=== PATIENT | male | born 1985 | race Hispanic/Latino ===

== ENCOUNTER 2017-09-06 22:33 | Emergency (ER) | payer OTHER ==
[2017-09-06 23:04] LABS: BASOPHILS % (AUTO) 0.7 % (0.0-5.0); EOSINOPHILS % (AUTO) 0.8 % (0.0-8.0); HEMATOCRIT 40.6 % (42-54); LYMPHOCYTES % (AUTO) 22.5 % (21.0-51.0); MEAN CORPUSCULAR HEMOGLOBIN 31.6 pg (27.0-33.0); MEAN CORPUSCULAR HGB CONC 35.4 g/dL (32.0-36.0); MEAN CORPUSCULAR VOLUME 89.4 fL (79-99); MONOCYTES % (AUTO) 3.8 % (3.0-13.0); NEUTROPHILS % (AUTO) 72.2 % (40.0-77.0); PLATELET COUNT (AUTO) 213 K/uL (130-400); RED BLOOD CELL COUNT(AUTO) 4.54 MIL/uL (4.50-6.20); RED CELL DISTRIBUTION WIDTH 12.6 % (11.0-15.5); WHITE BLOOD COUNT (AUTO) 7.3 K/uL (4.8-10.8)
[2017-09-06 23:13] LABS: APPEARANCE,URINE Cloudy (CLEAR); BILIRUBIN,URINE Negative (NEGATIVE); COLOR,URINE Yellow (YELLOW); GLUCOSE, URINE (UA) TRACE mg/dL (NEGATIVE); KETONES,URINE Trace mg/dL (NEGATIVE); LEUKOCYTE ESTERASE ,URINE Negative (NEGATIVE); NITRATE,URINE Negative (NEGATIVE); OCCULT BLOOD,URINE Small (NEGATIVE); PROTEIN,URINE POS 2+ (NEGATIVE); UROBILINOGEN,URINE 0.2 mg/dL (0.2-1.0)
[2017-09-06 23:20] LABS: CARBON DIOXIDE 21 mmol/L (21-32); CHLORIDE 104 mmol/L (101-111); CREATININE 1.4 mg/dL (0.5-1.5); GLOMERULAR FILTR. RATE CALC 62 mL/min (>60); GLUCOSE,RANDOM 149 mg/dL (70-105); POTASSIUM 3.6 mmol/L (3.5-5.1); SODIUM SERUM 142 mmol/L (136-145); UREA NITROGEN, BLOOD 15 mg/dL (7-18)
[2017-09-06 23:21] LABS: AMPHET/METH SCREEN,URINE NEGATIVE (NEGATIVE); BARBITURATE SCREEN, URINE NEGATIVE (NEGATIVE); BENZODIAZEPINES SCREEN,URINE POSITIVE (NEGATIVE); CANNABINOID SCREEN,URINE NEGATIVE (NEGATIVE); COCAINE SCREEN,URINE POSITIVE (NEGATIVE); OPIATE SCREEN,URINE NEGATIVE (NEGATIVE); PHENCYCLIDINE SCREEN,URINE NEGATIVE (NEGATIVE)
[2017-09-06 23:24] LABS: ALANINE AMINOTRANSFERASE 22 U/L (12-78); ALBUMIN 3.9 g/dL (3.5-5.0); ASPARTATE AMINOTRANSFERASE 16 U/L (10-37); BILIRUBIN,TOTAL 0.5 mg/dL (0.2-1.0)
[2017-09-06 23:25] LABS: PHENYTOIN (DILANTIN) < 0.5 mcg/mL (10.0-20.0)
[2017-09-06 23:27] LABS: BACTERIA,URINE Rare /HPF (None Seen); RBC,URINE 0-1 /HPF (0-1); SPERM,URINE Moderate /HPF (None Seen)
[2017-09-06] MEDS ORDERED: FOSPHENYTOIN SODIUM 500 MG/10ML VIAL IJ ONE (23:28)
== END 2017-09-07 01:19 | disposition home or self-care (01) ==
LOC: EDH 22:33
DX: S09.8XXA Other specified injuries of head, initial encounter (principal); G40.909 Epilepsy, unspecified, not intractable, without status epilepticus; Z71.51 Drug abuse counseling and surveillance of drug abuser; Z87.891 Personal history of nicotine dependence; X58.XXXA Exposure to other specified factors, initial encounter; Y93.89 Activity, other specified; Y92.89 Other specified places as the place of occurrence of the external cause; Y99.8 Other external cause status
CPT/HCPCS: 36415; 70450; 72125; 80053; 80185; 80305; 81001; 83735; 85025; 96365; 99285; Q2009

== ENCOUNTER 2018-05-12 21:36 | Emergency (ER) | payer SELFPAY ==
[2018-05-12] MEDS ORDERED: ACETAMINOPHEN-CODEINE 300/30MG TAB ONE (23:30)
[2018-05-12] MEDS ORDERED: AMOXICILLIN/POTASSIUM CLAV 875-125 TABLET PO ONE (23:30)
[2018-05-12] MEDS ORDERED: TETANUS/DIPHTHERIA TOXOID [ADULT] 0.5 ML VIAL IM ONE (23:31)
[2018-05-12] MEDS ORDERED: LIDOCAINE HCL 1% 20 ML VIAL ONE (23:40)
== END 2018-05-13 01:10 | disposition home or self-care (01) ==
LOC: EDH 21:36
DX: S71.152A Open bite, left thigh, initial encounter (principal); W54.0XXA Bitten by dog, initial encounter; Y93.89 Activity, other specified; Y92.89 Other specified places as the place of occurrence of the external cause; Y99.8 Other external cause status
CPT/HCPCS: 12004; 12034; 73562; 90471; 90714

== ENCOUNTER 2019-02-01 13:05 | Emergency (ER) | payer SELFPAY ==
[2019-02-01 13:29] LABS: BASOPHILS % (AUTO) 0.6 % (0.0-5.0); EOSINOPHILS % (AUTO) 0.2 % (0.0-8.0); HEMATOCRIT 42.7 % (42-54); MEAN CORPUSCULAR HEMOGLOBIN 32.2 pg (27.0-33.0); MEAN CORPUSCULAR HGB CONC 35.5 g/dL (32.0-36.0); MEAN CORPUSCULAR VOLUME 90.8 fL (79-99); MONOCYTES % (AUTO) 6.8 % (3.0-13.0); NEUTROPHILS % (AUTO) 78.4 % (40.0-77.0); PLATELET COUNT (AUTO) 183 K/uL (130-400); RED BLOOD CELL COUNT(AUTO) 4.71 MIL/uL (4.50-6.20); RED CELL DISTRIBUTION WIDTH 12.5 % (11.0-15.5); WHITE BLOOD COUNT (AUTO) 7.7 K/uL (4.8-10.8)
[2019-02-01 13:38] LABS: CARBON DIOXIDE 28 mmol/L (21-32); CHLORIDE 102 mmol/L (101-111); CREATININE 1.1 mg/dL (0.5-1.5); GLOMERULAR FILTR. RATE CALC 81 mL/min (>60); GLUCOSE,RANDOM 108 mg/dL (70-105); POTASSIUM 3.7 mmol/L (3.5-5.1); SODIUM SERUM 138 mmol/L (136-145); UREA NITROGEN, BLOOD 13 mg/dL (7-18)
[2019-02-01 13:40] LABS: ALANINE AMINOTRANSFERASE 20 U/L (12-78); ALBUMIN 3.9 g/dL (3.5-5.0); ASPARTATE AMINOTRANSFERASE 18 U/L (10-37); BILIRUBIN,TOTAL 0.7 mg/dL (0.2-1.0); TOTAL PROTEIN, SERUM 6.8 g/dL (6.0-8.3)
[2019-02-01] MEDS ORDERED: ACETAMINOPHEN EXTRA STRENGTH 500 MG TABLET ONE (13:44)
[2019-02-01 13:48] LABS: PHENYTOIN (DILANTIN) < 0.5 mcg/mL (10.0-20.0)
[2019-02-01] MEDS ORDERED: FOSPHENYTOIN SODIUM 500 MG/10ML VIAL IJ ONE (15:35)
[2019-02-01] MEDS ORDERED: SODIUM CHLORIDE 0.9% 100 ML IV ONE (15:36)
[2019-02-01] MEDS ORDERED: PHENYTOIN SODIUM 100 MG ERCAP PO ONE (15:52)
[2019-02-01] MEDS ORDERED: LIDOCAINE 1%-EPI 1:100,000 20 ML VIAL IJ ONE (16:00)
[2019-02-01] MEDS ORDERED: NEOMY SULF/BACITRA/POLYMYXIN B 1 EACH PACKET TP ONE (16:33)
[2019-02-01 16:40] LABS: AMPHET/METH SCREEN,URINE NEGATIVE (NEGATIVE); BARBITURATE SCREEN, URINE NEGATIVE (NEGATIVE); BENZODIAZEPINES SCREEN,URINE POSITIVE (NEGATIVE); CANNABINOID SCREEN,URINE NEGATIVE (NEGATIVE); COCAINE SCREEN,URINE POSITIVE (NEGATIVE); OPIATE SCREEN,URINE NEGATIVE (NEGATIVE); PHENCYCLIDINE SCREEN,URINE NEGATIVE (NEGATIVE)
[2019-02-01] MEDS ORDERED: TETANUS/DIPHTHERIA TOXOID [ADULT] 0.5 ML VIAL IM ONE (16:55)
== END 2019-02-01 17:13 | disposition home or self-care (01) ==
LOC: EDH 13:05
DX: S01.01XA Laceration without foreign body of scalp, initial encounter (principal); G40.909 Epilepsy, unspecified, not intractable, without status epilepticus; F14.10 Cocaine abuse, uncomplicated; Z72.0 Tobacco use; X58.XXXA Exposure to other specified factors, initial encounter; Y93.89 Activity, other specified; Y92.89 Other specified places as the place of occurrence of the external cause; Y99.8 Other external cause status
CPT/HCPCS: 12002; 36415; 70450; 80053; 80185; 80305; 85025; 90471; 90714; 96365; 99285; J3490; Q2009

== ENCOUNTER 2024-02-04 11:49 | Emergency (ER) | payer BC ==
[~2024-02-04] VITALS: Ht 170.2 cm; Wt 68.0 kg
[2024-02-04 12:37] LABS: BASOPHILS # (AUTO) 0.02 K/uL (0.00-0.20); BASOPHILS % (AUTO) 0.3 % (0.0-5.0); EOSINOPHILS # (AUTO) 0.01 K/uL (0.00-0.70); EOSINOPHILS % (AUTO) 0.1 % (0.0-8.0); HEMATOCRIT 48.4 % (42-54); IMMATURE GRANULOCYTE ABSOLUTE 0.02 K/uL (0-1); LYMPHOCYTES # (AUTO) 0.7 K/uL (1.0-4.8); LYMPHOCYTES % (AUTO) 9.2 % (21.0-51.0); MEAN CORPUSCULAR HEMOGLOBIN 32.1 pg (27.0-33.0); MEAN CORPUSCULAR HGB CONC 36.6 g/dL (32.0-36.0); MEAN CORPUSCULAR VOLUME 87.7 fL (79-99); MONOCYTES # (AUTO) 0.3 K/uL (0.1-1.0); MONOCYTES % (AUTO) 3.9 % (3.0-13.0); NEUTROPHILS # (AUTO) 6.8 K/uL (1.8-7.7); NEUTROPHILS % (AUTO) 86.2 % (40.0-77.0); PLATELET COUNT (AUTO) 225 K/uL (130-400); RED BLOOD CELL COUNT(AUTO) 5.52 MIL/uL (4.50-6.20); RED CELL DISTRIBUTION WIDTH 11.9 % (11.0-15.5); WHITE BLOOD COUNT (AUTO) 7.9 K/uL (4.8-10.8)
[2024-02-04 12:47] LABS: CARBON DIOXIDE 24 mmol/L (21-32); CHLORIDE 102 mmol/L (101-111); CREATININE 1.1 mg/dL (0.5-1.3); GLOMERULAR FILTR. RATE CALC 87 mL/min (>90); GLUCOSE,RANDOM 126 mg/dL (70-105); POTASSIUM 3.5 mmol/L (3.5-5.1); SODIUM SERUM 139 mmol/L (136-145); UREA NITROGEN, BLOOD 6 mg/dL (7-18)
[2024-02-04 12:49] LABS: PHENYTOIN (DILANTIN) 6.2 mcg/mL (10.0-20.0)
--- NOTE | 2024-02-04 12:49 | ERN ---
ED Note History of Present Illness Stated Complaint: SEIZURE Chief Complaint: Seizure Time Seen by MD: 12:30 Dictation: History of present illness: 38-year-old male with past medical history of seizure, depression, anxiety presented to ED after having a 2 minute witnessed seizure episode at work. He had last seizure episode 4 months back. As per the patient he hit his left side of the head near the eye and the corner of a desk. No history of loss of consciousness, no vomiting, no nausea. No recent history of any infection reported. He complains of headache, 5/10. At the time of presentation his vitals were stable. As per the patient he is on alprazolam 2 mg once or twice daily, mood stabilizer and he has not been taking any alprazolam for past 3 days; he suspects this could be a withdrawal seizure similar history has happened before. He denies any allergies, any alcohol intake, but vapes marijuana. Allergies: Coded Allergies: No Known Drug Allergies (Unverified Allergy, Unknown, 02/04/24) Past Medical History Past Medical History: Seizure Surgical History: None Review of System Dictation REVIEW OF SYSTEMS Positive for headache, seizure CONSTITUTIONAL: Denies fevers, chills, or night sweats. No unintentional weight loss reported. ENT: No hearing loss, otalgia, otorrhea, rhinitis, rhinorrhea, hoarseness, or sore throat. CARDIOVASCULAR: Denies any exertional angina, dyspnea on exertion, orthopnea, paroxysmal nocturnal dyspnea, palpitations claudication. PULMONARY: Denies any shortness of breath, cough, phlegm / sputum, hemoptysis, pleuritic chest pain. SLEEP: Denies morning headaches, daytime somnolence or napping. Denies difficulty falling asleep, staying asleep, waking from sleep. Denies knowledge of snoring. GASTROINTESTINAL: Denies any type of dysphagia to either liquids or solids. Denies nausea, vomiting, abdominal pain, diarrhea, constipation, blood in stools . NEUROLOGICAL: Denies headache, motor weakness, sensory deficit, vertigo / spinning sensation, gait abnormalities, or tremors. GENITOURINARY: Denies frequency, urgency, nocturia, hematuria or incontinence, low urinary stream, straining to void, urinary intermittency or hesitancy ENDOCRINOLOGY: Denies polyuria, polydipsia, polyphagia or heat / cold intolerance. HEMATOLOGY: Denies thrombophilia / previous clots, or coagulopathy / bleeding disorders. ONCOLOGIC: Denies personal history of malignancy. DERMATOLOGIC: Denies rashes or pruritus. PSYCHIATRIC: Denies any suicidal or homicidal ideation. Denies hallucinations. Initial Vital Sign VS Vital Signs Date Time Temp Pulse Resp B/P (MAP) Pulse Ox O2 Delivery O2 Flow Rate FiO2 02/04/24 11:50 97 17 127/90 97 Room Air 0 02/04/24 12:07 98.2 21 Physical Exam Dictation PHYSICAL EXAM GENERAL APPEARANCE: Well nourished . Awake and alert. Oriented to time, place and person. No acute cardiopulmonary distress. HEENT: Head normocephalic , atraumatic. Sclera anicteric . Pupils are round and reactive. Extraocular movements intact . No conjunctival injection. No nasal congestion. No throat congestion .Oral mucosa moist. NECK: Supple. No JVD. No thyromegaly. No submental, submandibular, pre- /postauricular, occipital or supraclavicular lymphadenopathy. No carotid bruits. CHEST: Normal chest expansion. No Telemetry. LUNGS: Clear to auscultation bilaterally . No rales, rhonchi or any wheezing. Equal tactile fremitus. Resonant to percussion . CARDIOVASCULAR: Regular rate and rhythm. S1 and S2 normal. No rubs, murmurs or gallops. ABDOMEN: Soft, nontender, and nondistended. There is no rebound tenderness, voluntary guarding, or rigidity. No hepatosplenomegaly. Bowel sounds normal in all four quadrants . NEUROLOGICAL: Cranial nerves II-XII grossly intact. Motor is 5/5 in bilateral upper and lower extremities . No sensory deficits. EXTREMITIES: No edema, No cyanosis , No clubbing. Good capillary refill. SKIN: 1 cm laceration on the inferolateral aspect of left. Abrasion wound 1 cm on left side of vertex,. PSYCHIATRY: Normal affect .No auditory or visual hallucinations. Normal speech. No dysarthria. Results (Laboratory/Radiology) Laboratory/Radiology Laboratory Tests Test 02/04/24 12:21 02/04/24 13:10 White Blood Count 7.9 K/uL (4.8-10.8) Red Blood Count 5.52 MIL/uL (4.50-6.20) Hemoglobin 17.7 g/dL (14.0-18.0) Hematocrit 48.4 % (42-54) Mean Corpuscular Volume 87.7 fL (79-99) Mean Corpuscular Hemoglobin 32.1 pg (27.0-33.0) Mean Corpuscular Hemoglobin Concent 36.6 g/dL (32.0-36.0) H Red Cell Distribution Width 11.9 % (11.0-15.5) Platelet Count 225 K/uL (130-400) Mean Platelet Volume 10.3 fL (7.5-10.5) Immature Granulocyte % (Auto) 0.3 % (0-1) Neutrophils (%) (Auto) 86.2 % (40.0-77.0) H Lymphocytes (%) (Auto) 9.2 % (21.0-51.0) L Monocytes (%) (Auto) 3.9 % (3.0-13.0) Eosinophils (%) (Auto) 0.1 % (0.0-8.0) Basophils (%) (Auto) 0.3 % (0.0-5.0) Neutrophils # (Auto) 6.8 K/uL (1.8-7.7) Lymphocytes # (Auto) 0.7 K/uL (1.0-4.8) L Monocytes # (Auto) 0.3 K/uL (0.1-1.0) Eosinophils # (Auto) 0.01 K/uL (0.00-0.70) Basophils # (Auto) 0.02 K/uL (0.00-0.20) Absolute Immature Granulocyte (auto 0.02 K/uL (0-1) Nucleated Red Blood Cells 0.0 % (0.0-0.19) White Cell Morphology Comment See comments Red Blood Cell Morphology See comments Sodium Level 139 mmol/L (136-145) Potassium Level 3.5 mmol/L (3.5-5.1) Chloride Level 102 mmol/L (101-111) Carbon Dioxide Level 24 mmol/L (21-32) Blood Urea Nitrogen 6 mg/dL (7-18) L Creatinine 1.1 mg/dL (0.5-1.3) Glomerular Filtration Rate Calc 87 mL/min (>90) Random Glucose 126 mg/dL (70-105) H Total Calcium 9.0 mg/dL (8.5-10.1) Phenytoin (Dilantin) Level 6.2 mcg/mL (10.0-20.0) #L Valproic Acid (Depakene) Level < 3 mcg/mL (50-100) L Urine Opiates Screen NEGATIVE (NEGATIVE) Urine Barbiturates Screen NEGATIVE (NEGATIVE) Urine Phencyclidine Screen NEGATIVE (NEGATIVE) Urine Amphetamines Screen NEGATIVE (NEGATIVE) Urine Benzodiazepines Screen NEGATIVE (NEGATIVE) Urine Cocaine Screen NEGATIVE (NEGATIVE) Urine Marijuana (THC) Screen POSITIVE (NEGATIVE) H ED Course ED Course Orders Procedure Category Date Status Time Cbc With Differential LAB 02/04/24 Complete 11:52 Phenytoin (Joe) In LAB 02/04/24 Complete House 11:52 Valproic Acid LAB 02/04/24 Complete 11:52 Ct Head/Brain W/O CT 02/04/24 Resulted Contrast 11:52 Basic Metabolic Panel LAB 02/04/24 Complete 11:52 Drug Screen Urine LAB 02/04/24 Complete 11:52 Phenytoin 100mg PHA 02/04/24 In Process (50mg/Ml) Inj 14:00 Dermabond (Dermabond) PHA 02/04/24 Complete 14:00 Current Medications Medications (Trade) Dose Ordered Sig/Zaki Route PRN Reason Start Time Stop Time Status Last Admin Dose Admin Octyl Cyanoacrylate (Dermabond) 1 each ONCE ONCE TP 02/04/24 14:00 02/04/24 14:01 DC Phenytoin Sodium 1000 mg/Sodium Chloride 180 ml @ 360 mls/hr AD ONCE IV 02/04/24 14:00 02/04/24 14:29 Vital Signs Date Time Temp Pulse Resp B/P (MAP) Pulse Ox O2 Delivery O2 Flow Rate FiO2 02/04/24 12:07 98.2 78 16 116/72 98 Room Air* 0 21 02/04/24 11:50 97 17 127/90 97 Room Air 0 Medical Decision Making MDM Differential diagnosis : seizure disorder, breakthrough seizure, withdrawal seizure . Rationale: Tests considered and ordered secondary to shared decision making include: I will re-evaluate the patient after treatment and diagnostic exams have returned to determine whether they require further testing, can be safely discharged home, or need admission for further treatment and evaluation. Given the social determinants of health affecting care, including literacy, access to medical care, prescription drug management, and [id number] drugs, I will ensure that treatment plans are tailored accordingly. There are no social concerns with this patient. Risk of complication and/or morbidity or mortality of patient management: None Need for hospitalization: Patient does not meet criteria for hospitalization. Need for emergency major/minor surgery: No Prescription drug management Prescriptions will include symptomatic care Medications-Per medication reconciliation Previous outside records reviewed: Old ER visits. Patient's prior external medical records from other ER visits were reviewed by me as indicated. Prior testing and results from previous visits were reviewed. Prior tests were taken into account with medical decision making and resource utilization, independent historian/historians were used to obtain complete medical history. I independently interpreted the test that were performed, results were reviewed by me and considered findings on radiology. Medical management and examination interpretation discussions was done by me with other qualified healthcare professionals as indicated for the patient's care. Revaluation Disposition : DISCHARGED HOME ADVISED APPROPRIATE FOLLOW UP WITH PCP AND NEUROLOGIST. MEDICATION WAS NOT A THERAPEUTIC LEVEL PATIENT DID RECEIVE A MEDICATION FOR SEIZURE CONTROL ADVISED MEDICATION ADHERENCE PATIENT WILL BE DISCHARGED IN STABLE CONDITION DX & DISP Disposition: Observation Departure Impression: Primary Impression: Breakthrough seizure Additional Impression: Noncompliance with medication regimen Condition: Stable Referrals: GILMER LEWIS MD (PCP) LUC ALCALA MD I WAS PRESENT AND PARTICIPATED IN THE CARE OF THIS PATIENT ALONGSIDE WITH THE RESIDENT PHYSICIAN. I HAVE REVIEWED AND PERSONALLY MADE AND APPROVED THE MANAGEMENT PLAN THAT IS DOCUMENTED IN THE NOTE BY MYSELF WITH THE RESIDENT PHYSICIAN. I ACKNOWLEDGED FOR RESPONSIBILITY FOR THE PATIENT'S MANAGEMENT PLAN. CAM OLIVEIRA MD Feb 04, 2024 12:49 MAXINE ANDERSON MD Feb 04, 2024 14:08
--- NOTE | 2024-02-04 12:57 | HMCIMG ---
CT HEAD/BRAIN W/O CONTRAST HISTORY: Seizure COMPARISON: None TECHNIQUE: Multiple sequential axial images of the head were obtained from the base of the skull through vertex. Patient was not given contrast through intravenous route. FINDINGS: The ventricles and extraventricular CSF spaces are nondilated for patient's age. There is no midline shift, mass effect or herniation. No acute intracranial bleed is seen. Visualized portion of the paranasal sinuses are grossly within normal limits. IMPRESSION: 1. No acute intracranial bleed is seen. CT was performed with one or more following dose reduction techniques: automated exposure control, adjustment of the mA and kv according to patient's size, or use of a iterative reconstruction technique.
[2024-02-04 13:00] LABS: VALPROIC ACID < 3 mcg/mL (50-100)
[2024-02-04 13:30] LABS: AMPHET/METH SCREEN,URINE NEGATIVE (NEGATIVE); BARBITURATE SCREEN, URINE NEGATIVE (NEGATIVE); BENZODIAZEPINES SCREEN,URINE NEGATIVE (NEGATIVE); CANNABINOID SCREEN,URINE POSITIVE (NEGATIVE); COCAINE SCREEN,URINE NEGATIVE (NEGATIVE); OPIATE SCREEN,URINE NEGATIVE (NEGATIVE); PHENCYCLIDINE SCREEN,URINE NEGATIVE (NEGATIVE)
[2024-02-04] MEDS: [UNRECOGNIZED DRUG - OTHER] IV ONE (14:08)
[2024-02-04] MEDS: PHENYTOIN IV ONE (14:08)
[2024-02-04] MEDS: OCTYL 2-CYANOACRYLATE 1 EACH TP ONE (14:12)
[2024-02-04 15:59] VITALS: BP 123/65; PULSE 81; RESP 16; TEMP 98.3; O2SAT 99
== END 2024-02-04 16:00 | disposition home or self-care (01) ==
LOC: EDH 11:49
DX: G40.909 Epilepsy, unspecified, not intractable, without status epilepticus (principal); Z79.899 Other long term (current) drug therapy; Z91.148 Patient's other noncompliance with medication regimen for other reason
CPT/HCPCS: 99284; 96365; 70450; 96366; 80164; 80185; 80048; 80305; 85025; 36415; J1165